=== PATIENT | male | born 1950 | race Caucasian/White ===

== ENCOUNTER → 2016-12-22 | Outpatient (CLI) | payer OTHER, BC ==
[2016-12-22 14:01] LABS: SYNOVIAL FLUID APPEARANCE CLEAR; SYNOVIAL FLUID COLOR YELLOW; SYNOVIAL FLUID MONONUC RELAT 72.7 %; SYNOVIAL FLUID POLYNUC RELAT 27.3 %
--- NOTE | 2016-12-23 12:38 | CODING QUERY MEDICAL NECESSITY ---
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 Please assist us with providing a diagnosis/symptom for the test(s) below: A diagnosis/symptom was not documented on your Order. A valid diagnosis/symptom is required to bill all insurances. Please remember that we are unable to code a diagnosis of rule out, probable, possible, questionable, or suspected. Tests that require a diagnosis: DOS 12/22/16 SYNOVIAL FLUID TESTS Provider Signature: Date: Thank you Yumiko Ramos [facility] Information Management Once completed, please kindly fax back to [phone] For questions please call [phone]
== END | disposition home or self-care (01) ==
LOC: C.LAB 12:30
DX: M25.561 Pain in right knee (principal)